=== PATIENT | female | born 1965 | race Caucasian/White ===

== ENCOUNTER 2021-07-24 09:16 | Emergency (ER) | payer BC ==
[~2021-07-24] VITALS: Ht 160 cm; Wt 114.3 kg
[2021-07-24] MEDS ORDERED: GLUCOPHAGE PO (10:09)
[2021-07-24] MEDS ORDERED: CARDIZEM120 M1 PO (10:09)
[2021-07-24] MEDS ORDERED: ZESTRIL20 M1 PO (10:10)
[2021-07-24] MEDS ORDERED: NORVASC 10MG10 MG PO (10:11)
[2021-07-24] MEDS ORDERED: OMEPRAZOLE40 MG PO (10:11)
[2021-07-24 10:30] VITALS: BP 128/75
== END 2021-07-24 10:30 | disposition home or self-care (01) ==
LOC: ED 09:16
DX: S61.011A Laceration without foreign body of right thumb without damage to nail, initial encounter (principal); W26.0XXA Contact with knife, initial encounter
CPT/HCPCS: 90715

== ENCOUNTER → 2022-04-01 | Outpatient (CLI) | payer BC ==
[~2022-04-01] MED LIST: CARDIZEM120 M1 PO; GLUCOPHAGE PO; NORVASC 10MG10 MG PO; OMEPRAZOLE40 MG PO; ZESTRIL20 M1 PO
== END ==
LOC: RAD 12:32
DX: K57.32 Diverticulitis of large intestine without perforation or abscess without bleeding (principal)
CPT/HCPCS: Q9967